=== PATIENT | female | born 1995 | race African-American/Black ===

== ENCOUNTER 2022-02-24 05:32 | Emergency (ER) | payer OTHER ==
[~2022-02-24 05:32] MED LIST: CIPRO500 MG PO; FIORICET1 EACH PO; K-DUR20 MEQ PO; MYLICON80 MG PO; NAPROXEN500 MG PO; PREDNISONE 20MG20 MG PO; ZOVIRAX200 MG PO
== END 2022-02-24 07:09 | disposition home or self-care (01) ==
LOC: FER 05:32
DX: J02.9 Acute pharyngitis, unspecified (principal); F17.200 Nicotine dependence, unspecified, uncomplicated; R11.10 Vomiting, unspecified
CPT/HCPCS: 99283